=== PATIENT | female | born 1955 | race Caucasian/White ===

== ENCOUNTER → 2016-11-12 | Outpatient (CLI) | payer BC ==
[~2016-11-12] MED LIST: LEVO50TA5 PO; none per pt
[2016-11-12 10:02] LABS: BLOOD UREA NITROGEN 9 mg/dL (7-18); TOTAL IRON BINDING CAPACITY 398 mcg/dL (250-450)
[2016-11-12 10:17] LABS: ASPARTATE AMINO TRANSFERASE 65 U/L (15-37)
[2016-11-14 12:06] LABS: HDL-C 64 mg/dL (>39); HDL-P (TOTAL) 45.5 umol/L (>=30.5); LDL SIZE 21.3 nm (>20.5); LDL-C 106 mg/dL (0-99); LDL-P 1588 nmol/L (<1000); LP-INSULIN RESISTANCE SCORE 62 (<=45); SMALL LDL-P 620 nmol/L (<=527); TRIGLYCERIDES 117 mg/dL (0-149)
== END | disposition home or self-care (01) ==
LOC: LAB 09:24
PROVIDERS: ATTEND Internal Medicine
DX: Z13.220 Encounter for screening for lipoid disorders (principal); Z12.11 Encounter for screening for malignant neoplasm of colon; Z12.39 Encounter for other screening for malignant neoplasm of breast; Z12.4 Encounter for screening for malignant neoplasm of cervix; E03.9 Hypothyroidism, unspecified; R74.0 Nonspecific elevation of levels of transaminase and lactic acid dehydrogenase [LDH]; R09.02 Hypoxemia; E78.1 Pure hyperglyceridemia
CPT/HCPCS: 36415; 80053; 80061; 82728; 82977; 83540; 83550; 83704; 84443; 84466; 85025

== ENCOUNTER → 2016-11-22 | Outpatient (CLI) | payer BC | END | disposition home or self-care (01) | LOC: CFH 08:16 | PROVIDERS: ATTEND Internal Medicine | DX: K76.0 Fatty (change of) liver, not elsewhere classified (principal); F41.9 Anxiety disorder, unspecified; E78.1 Pure hyperglyceridemia; E03.9 Hypothyroidism, unspecified | CPT/HCPCS: 76700 ==

== ENCOUNTER → 2017-03-25 | Outpatient (CLI) | payer BC | LOC: LAB 08:26 | PROVIDERS: ATTEND Internal Medicine | DX: Z02.9 Encounter for administrative examinations, unspecified (principal) ==

== ENCOUNTER → 2018-04-07 | Outpatient (CLI) | payer BC ==
[2018-04-07 08:09] LABS: ALBUMIN 3.9 g/dL (3.4-5.0); CHOLESTEROL, TOTAL 196 mg/dL (140-239); IRON LEVEL 50 mcg/dL (50-170)
[2018-04-07 08:13] LABS: % IRON SATURATION 15 % (20-55); ALANINE AMINOTRANSFERASE 48 U/L (12-78); ALKALINE PHOSPHATASE 91 U/L (45-117); BILIRUBIN,TOTAL 0.3 mg/dL (0.2-1.0); CHOL/HDL RATIO 4.4; HDL CHOL % 23 % (28-40); HDL CHOLESTEROL (DIRECT) 45 mg/dL (40-60); LDL CHOLESTEROL,CALCULATED 124 mg/dL (54-169); LDL/HDL RATIO 2.8 (0.5-3.0); TOTAL IRON BINDING CAPACITY 336 mcg/dL (250-450); TOTAL PROTEIN 6.8 g/dL (6.4-8.2); TRANSFERRIN 257 mg/dL (200-360); TRIGLYCERIDES 137 mg/dL (50-200); VLDL CHOLESTEROL 27 mg/dL (0-25)
[2018-04-07 08:17] LABS: BILIRUBIN, DIRECT < 0.1 mg/dL (0.1-0.2); BILIRUBIN,INDIRECT 0.2 mg/dL (0.0-2.0)
== END | disposition home or self-care (01) ==
LOC: LAB 07:44
PROVIDERS: ATTEND Internal Medicine
DX: Z13.220 Encounter for screening for lipoid disorders (principal); Z12.11 Encounter for screening for malignant neoplasm of colon; Z12.39 Encounter for other screening for malignant neoplasm of breast; Z12.4 Encounter for screening for malignant neoplasm of cervix; R74.0 Nonspecific elevation of levels of transaminase and lactic acid dehydrogenase [LDH]; R09.02 Hypoxemia; E78.1 Pure hyperglyceridemia; E03.9 Hypothyroidism, unspecified; F41.9 Anxiety disorder, unspecified; K76.0 Fatty (change of) liver, not elsewhere classified
CPT/HCPCS: 36415; 80061; 80076; 82728; 83540; 83550; 84466